=== PATIENT | male | born 1990 | race Asian ===

== ENCOUNTER 2020-07-05 21:23 | Emergency (ER) | payer OTHER ==
[~2020-07-05] VITALS: Ht 167.6 cm; Wt 88.1 kg
[2020-07-05] MEDS ORDERED: TRUVTAB PO (21:31)
[2020-07-05] MEDS ORDERED: diphenhydrAMINE 50MG CAP PO ONE (23:10)
[2020-07-05] MEDS ORDERED: ALL10TAB2 PO (23:12)
[2020-07-05 23:47] VITALS: BP 149/99
== END 2020-07-05 23:50 | disposition home or self-care (01) ==
LOC: M ED 21:23
DX: R22.0 Localized swelling, mass and lump, head (principal); R21 Rash and other nonspecific skin eruption; T50.Z95A Adverse effect of other vaccines and biological substances, initial encounter

== ENCOUNTER 2020-12-05 10:57 | Emergency (ER) | payer OTHER ==
[~2020-12-05] VITALS: Ht 167.6 cm; Wt 85.1 kg
[~2020-12-05 10:57] MED LIST: ALL10TAB2 PO; EMTR1TAB16 PO
[2020-12-05] MEDS ORDERED: HYDR-3713 PO (13:04)
[2020-12-05] MEDS ORDERED: ANUS2.5C2 TOP (13:04)
[2020-12-05] MEDS ORDERED: ANUS25SU PR (13:04)
[2020-12-05 13:17] VITALS: BP 126/28
== END 2020-12-05 13:14 | disposition home or self-care (01) ==
LOC: M ED 10:57
DX: K64.4 Residual hemorrhoidal skin tags (principal)

== ENCOUNTER 2021-04-18 09:09 | Emergency (ER) | payer OTHER ==
[~2021-04-18] VITALS: Ht 167.6 cm; Wt 83.8 kg
[~2021-04-18 09:09] MED LIST changes: +ANUS2.5C2 TOP; +ANUS25SU PR; +HYDR-3713 PO
[2021-04-18] MEDS ORDERED: IBUP-1022 PO (09:34)
[2021-04-18] MEDS ORDERED: dexameTHASONE 20MG/5ML VIAL (J1100 PER 1MG) IV ONE (09:45)
[2021-04-18] MEDS ORDERED: NS 1,000 ML IV ONE (09:45)
[2021-04-18 10:13] LABS: BASO # 0.1 10^3/uL (0.0-0.2); BASO % 0.2 % (0.0-1.0); HEMATOCRIT 45.3 % (42.0-52.0); LYMPH # 1.5 10^3/uL (1.5-5.0); LYMPH % 7.2 % (24.0-44.0); MEAN CORPUSCULAR HEMOGLOBIN 30.1 pg (27.0-33.0); MEAN CORPUSCULAR HGB CONC 33.1 g/dl (32.0-36.5); MONO % 9.9 % (2.0-8.0); NEUTROPHILS # 16.5 10^3/uL (1.5-8.5); NEUTROPHILS % 81.7 % (36.0-66.0); PLATELET COUNT, AUTOMATED 249 10^3/uL (150-450); RED BLOOD COUNT 4.98 10^6/uL (4.30-6.10); WHITE BLOOD COUNT 20.2 10^3/uL (4.0-10.0)
[2021-04-18] MEDS ORDERED: ISOVUE-370 76% 100ML VIAL As Ordered ONE (10:15)
[2021-04-18 10:32] LABS: MONO REFLEX EBV COMP NEGATIVE (NEGATIVE)
[2021-04-18] MEDS ORDERED: CLINDAMYCIN 900 MG in IV 1 EA IV ONE (11:35)
[2021-04-18] MEDS ORDERED: CLEO300C2 PO (13:43)
[2021-04-18] MEDS ORDERED: DECA4TAB PO (13:45)
[2021-04-18 13:51] VITALS: BP 121/77
[2021-04-19 15:09] LABS: EBV AB TO NUCLEAR ANTIGEN 62.5 U/mL (0.0-17.9); EBV VIRAL CAPSID AG IgM <36.0 U/mL (0.0-35.9)
== END 2021-04-18 13:52 | disposition home or self-care (01) ==
LOC: M ED 09:09
DX: J03.90 Acute tonsillitis, unspecified (principal)
CPT/HCPCS: 36415; 70491; 80047; 85025; 86308; 86664; 86665; 87880; 96361; 96365; 96375; 99284; J1100; Q9967